=== PATIENT | female | born 1960 | race Caucasian/White ===

== ENCOUNTER 2021-05-28 06:17 | Day surgery (SDC) | payer MEDICAID ==
[2021-05-28] MEDS ORDERED: Sodium Chloride 0.9% 1,000 ML IV SCH (07:00)
[2021-05-28] MEDS ORDERED: Midazolam 1 MG/ML 2 ML SDV ONE (07:25)
[2021-05-28] MEDS ORDERED: fentaNYL 100 MCG/2 ML SDV ONE (07:25)
[2021-05-28] MEDS ORDERED: Propofol 200 MG/20 ML SDV ONE (07:25)
--- NOTE | 2021-05-28 14:31 | OR ---
DATE OF PROCEDURE: 05/28/2021 SURGEON: Angel Kaur MD PROCEDURE: Colonoscopy. FINDINGS: 1. Ascending colon polyp, approximately 5 mm, completely removed using cold biopsy forceps. 2. Diverticulosis, moderate, mostly limited to sigmoid colon without evidence of diverticulitis or bleeding. 3. Marginal colon prep. COMPLICATIONS: None. [employer] PRESS OPERATOR: None. ANESTHESIA: MAC. RISKS: Risks, benefits, alternatives, and limitations including, but not limited to infection, bleeding, perforation, false positives and false negatives were explained to patient who wished to proceed. PROCEDURE IN DETAIL: The patient was placed in left lateral decubitus position. Digital rectal exam was performed without abnormality. The scope was then brought back to the ascending, transverse, descending colon, and retroflexed. The aforementioned polyp was identified and completely removed. No abnormal bleeding was noted after this. Diverticulosis described as mild to moderate, mostly concentrated in the sigmoid colon without evidence of diverticulitis or bleeding. Prep was marginal, approximately 80% to 90% of luminal surface could be seen. No abnormalities on retroflexion. Greater than 8 minutes spent removing the scope. The patient tolerated the procedure well. Angel Kaur MD /[id number]
== END 2021-05-28 09:40 | disposition home or self-care (01) ==
LOC: JP.SDS 06:17
PROVIDERS: ATTEND Surgery
DX: Z12.11 Encounter for screening for malignant neoplasm of colon (principal); K63.5 Polyp of colon; K57.30 Diverticulosis of large intestine without perforation or abscess without bleeding; Z88.0 Allergy status to penicillin
CPT/HCPCS: 45380; J2250; J2704; J3010; J7030